=== PATIENT | female | born 1960 | race Caucasian/White ===

== ENCOUNTER → 2021-10-12 11:55 | Outpatient (CLI) | payer BC, SELFPAY ==
--- NOTE | ~2021-10-12 | MR_ITS ---
EXAMINATION: MR brain/brain stem wo/w con EXAM DATE: 10/12/2021 12:50 INDICATION: Double vision since October 02. TECHNIQUE: Magnetic resonance imaging (MRI) of the brain/brain stem obtained without contrast. Sagit jeff T1, axial diffusion, gradient echo (T2*), T1, T2, FLAIR sequences obtained. Patient was then inj ected with 10 cc intravenous Multihance contrast. Axial and coronal postcontrast T1 weighted sequence s obtained. There is no prior study for comparison. FINDINGS: There are no areas of restricted diffusion to suggest acute infarction. There is no acute hemorrhage seen on the T2*, a hemosiderin sensitive sequence. No intraparenchymal brain mass lesion. There is mild periventricular and subcortical T2/FLAIR signal hyperintensity, nonspecific but probab ly related to small vessel ischemic disease (microangiopathy). There are no extra-axial collectio ns. Flow voids are seen in the cerebral arteries on the T2-weighted sequences consistent with their expected patency. The orbits are unremarkable. Soft tissue is unremarkable. There are no areas of abnormal enhancement on the postcontrast images. IMPRESSION: 1. No acute intracranial findings. 2. Mild microangiopathy. Reviewed, dictated and finalized at location G. TEACHER
[2021-10-12 12:27] LABS: Estimated Glomerular Filt Rate > 60
== END ==
PROVIDERS: Visit Provider Internal Medicine
DX: H53.2 Diplopia (principal); R93.0 Abnormal findings on diagnostic imaging of skull and head, not elsewhere classified
CPT/HCPCS: 70553; A9577

== ENCOUNTER → 2022-01-26 11:46 | Outpatient (CLI) | payer BC, SELFPAY ==
--- NOTE | ~2022-01-26 | MR_ITS ---
EXAMINATION: MR shoulder LT wo con DATE: 01/26/2022 12:58 INDICATION: Left shoulder pain. TECHNIQUE: Magnetic resonance imaging (MRI) of the left shoulder was performed without intravenous co ntrast. Sequences included axial PD-weighted FS FSE, coronal oblique PD-weighted FS FSE and T2-weight ed FS FSE, and sagittal oblique T2-weighted FS FSE and T1-weighted FSE. COMPARISON: None. FINDINGS: Coracoacromial arch: The acromion undersurface is curved in morphology (type II). There is remodeling of the undersurface of the acromion, consistent with cuff arthropathy. There is moderate acromioclavicular joint osteoart hritis. There is moderate subacromial/subdeltoid bursitis. Rotator cuff: There is a full-thickness tear of supraspinatus and infraspinatus tendons measuring 4.5 cm anterior t o posterior by 5.0 cm proximal to distal. There is a partial tear of teres minor tendon. There is an articular-sided partial-thickness tear of subscapularis tendon. There is volume loss of supraspinatus and infraspinatus muscle bellies. There is severe fatty atrophy of infraspinatus muscle belly, moder ate fatty atrophy of supraspinatus muscle belly, and mild fatty atrophy of subscapularis muscle belly . There is a partial tear of deltoid muscle laterally at the myotendinous junction. Biceps tendon and glenoid labrum: There is a complete tear of biceps tendon with scarred tendon in the bicipital groove. There is degen erative tearing of the glenoid labrum. Fluid: There is a large glenohumeral joint effusion. Bones/cartilage: There is superior subluxation of humeral head with respect to glenoid. There is shallow partial-thick ness cartilage loss of humeral head and glenoid. IMPRESSION: 1. Massive full-thickness rotator cuff tear. 2. Partial tear of deltoid muscle laterally (grade 2 strain). 3. Mild glenohumeral joint chondrosis. 4. Complete tear of proximal biceps tendon. 5. Large glenohumeral joint effusion and moderate subacromial/subdeltoid bursitis. Reviewed, dictated and finalized at location A. IMPRESSION: 1. Massive full-thickness rotator cuff tear. 2. Partial tear of deltoid muscle laterally (grade 2 strain). 3. Mild glenohumeral joint chondrosis. 4. Complete tear of proximal biceps tendon. 5. Large glenohumeral joint effusion and moderate subacromial/subdeltoid bursit is.
== END ==
PROVIDERS: PCP Internal Medicine; Visit Provider Physician Assistant Medical
DX: M75.102 Unspecified rotator cuff tear or rupture of left shoulder, not specified as traumatic (principal); S46.212A Strain of muscle, fascia and tendon of other parts of biceps, left arm, initial encounter; X58.XXXA Exposure to other specified factors, initial encounter; M25.412 Effusion, left shoulder
CPT/HCPCS: 73221

== ENCOUNTER → 2023-04-04 13:09 | Outpatient (CLI) | payer BC, SELFPAY ==
--- NOTE | ~2023-04-04 | MM_ITS ---
EXAMINATION: MM screening elver BI w vera HISTORY: Screening TECHNIQUE: Craniocaudal and mediolateral oblique 3-D tomosynthesis images were obtained and synthetic 2-D images were generated. CAD analysis was submitted and interpreted. COMPARISON: No prior mammogram is available for comparison at this institution. BREAST PARENCHYMAL COMPOSITION: There are scattered areas of fibroglandular density. FINDINGS: There is no evidence of suspicious mass, calcification, or architectural distortion to sugg est malignancy in either breast. There has been no suspicious interval change. IMPRESSION: 1. No mammographic evidence of malignancy. 2. Recommend routine screening mammography in one year. BI-RADS Category 1: Negative Reviewed, dictated and finalized at location A.
== END ==
PROVIDERS: PCP Obstetrics & Gynecology Gynecology; Visit Provider Obstetrics & Gynecology Gynecology
DX: Z12.31 Encounter for screening mammogram for malignant neoplasm of breast (principal)
CPT/HCPCS: 77063; 77067

== ENCOUNTER 2024-05-17 09:46 | Outpatient (CLI) | payer BC, SELFPAY ==
--- NOTE | ~2024-05-17 | MM_ITS ---
EXAMINATION: MM screening elver BI w vera HISTORY: Screening TECHNIQUE: Craniocaudal and mediolateral oblique 3-D tomosynthesis images were obtained and synthetic 2-D images were generated. CAD analysis was submitted and interpreted. COMPARISON: 04/04/2023 BREAST PARENCHYMAL COMPOSITION: Dense: The breasts are heterogeneously dense, which may obscure small masses FINDINGS: There is no evidence of suspicious mass, calcification, or architectural distortion to sugg est malignancy in either breast. There has been no suspicious interval change. IMPRESSION: 1. No mammographic evidence of malignancy. 2. Recommend routine screening mammography in one year. BI-RADS Category 1: Negative Reviewed, dictated and finalized at location B.
== END 2024-05-17 09:47 | disposition home or self-care (01) ==
PROVIDERS: PCP Obstetrics & Gynecology Gynecology; Visit Provider Obstetrics & Gynecology Gynecology
DX: Z12.31 Encounter for screening mammogram for malignant neoplasm of breast (principal)
CPT/HCPCS: 77063; 77067

== ENCOUNTER 2024-12-30 10:57 | Outpatient (CLI) | payer BC, SELFPAY ==
--- NOTE | ~2024-12-30 | DEXA_ITS ---
Bone Density Report Name: MAUDE HUTCHINS Age: 64 Sex: Female Ethnicity: White Date of : 1960 Indication: postmenopausal; screening for osteoporosis; height loss; Referring Provider: NORBERT LABOY Study: Bone densitometry was performed. Exam Date: December 30, 2024 Accession number: [id number] Bone Density: Region BMD T-score Z-score Classification AP Spine(L1-L4) 1.262 2.0 3.7 Normal Femoral Neck (Left) 0.819 -0.3 1.2 Normal Total Hip (Left) 0.872 -0.6 0.6 Normal Femoral Neck (Right) 0.830 -0.2 1.3 Normal Total Hip (Right) 0.857 -0.7 0.5 Normal Total Hip Mean 0.864 -0.7 0.6 Normal World Health Organization criteria for BMD impression classify patients as: Normal (T-score at or above -1.0), Osteopenia (T-score between -1.0 and -2.5), or Osteoporosis (T-score at or below -2.5). 10-year Fracture Risk: FRAX not reported because: All T-scores for Spine Total, Hip Total, Femoral Neck at or above -1.0 Clinical Information Provided by Patient: Has used the following medications: Vitamin D, Calcium Patient maximum height was 67 Menopause Age: 50 Drinks caffeinated beverages Onset of menses at age 14 Number of children 2 Impression: The patient has normal bone mass. Discussion: BONE DENSITY IS ABOVE THE MINIMUM DESIRABLE LEVEL AT ALL SKELETAL SITES TESTED. This patient?s bone mineral density is above the minimum desirable level (T-score -1.0 or better) at all sites measured. The patient should follow a healthful lifestyle (good nutrition with adequate calcium and vitamin D, and appropriate weight-bearing exercise). Follow-Up: Consider repeating this study in 5 years or sooner if there is some new clinical indication. Reported by: BREEZY on 12/30/2024 11:47:00 AM. Reviewed, dictated and finalized at location A.
--- OUTSIDE RECORDS SUMMARY | 2024-12-30 11:21 | XMS_ITS ---
Author Organization [facility] Address [address] [facility] [address] [place] [address] Care Team Providers Care Heel Nailing Machine Operator Name Role Phone Pro Ugarte Unavailable [phone] ALLERGIES No Known Allergies REASON FOR VISIT Left shoulder MEDICATIONS Medication SIG (Take, Route, Fr equency, Duration) Notes Start Date End Date Status Magnesium Unknown Calcium Unknown Daily Vitamins Unkno wn VITAL SIGNS BMI 22.30 kg/m2 10/29/2024 Height 65 in 10/29/2024 Weight 134 lbs 10/29/2024 Encounters Encounter Location Date Provider Diagnosis [facility] [place] [address] [facility] [address] [address] 10/29/2024 Pro Ugarte Rotator cuff arthropathy of left shoulder M12.812 and Left shoulder pain M25.512 ASSESSMENTS Encounter Date Diagnosis Assessment Notes Treatment Notes Treatment Clinical Notes 10/29/2024 Rotator cuff arthropathy of left shoulder (ICD-10 - M12.812) Sherri Monroy is a 63 y.o. F who presents with chronic left shoulder pain secondary to rotator cuff arthropathy. She is notably weak on exam. She had a good response from the last injection and is hoping for another one today as she works a physical job. She is quite fearful of needing a replacement. We did talk to her about the details of a reverse shoulder arthroplasty if she were to need one. At this point her range of motion is quite good and the main reason to do the replacement would be to alleviate her pain and make her strength a little bit better. However, if she continues to have good responses to the injections I would recommend continuing these. We will see her back in 3 months for follow-up for another potential injection at that time. If he is not getting lasting relief we may have to discuss a reverse replacement. 10/29/2024 Left shoulder pain (ICD-10 - M25.512) PLAN OF TREATMENT Pending Test Test Name Order Date X ray : Shoulder 4 views L, AP, Grashey, Outlet, Axillary 10/29/2024 Next Appt Details Follow Up: 3 Months, Reason: Provider Name:Pro Ugarte, 01/30/2025 09:50:00 AM, [address] , [place] [address], [place], [address], Procedure Notes * Category Sub-Category Detail Notes Subacromial Bursa Injection Side Left Details The injection was do ne with the patient in a seated position. The skin was prepped with betadine and alcohol. A 22-gauge, 1 1/2-inch needle was inserted into the subacromial bursa using a posterior approach. I then injected a solution containing 1 cc of Celestone and 5 cc of 1% lidocaine without epinephrine. The needle was removed and a sterile dressing was applied. There were no complications.
--- OUTSIDE RECORDS SUMMARY | 2024-12-30 11:22 | XMS_ITS | Clinical Summary ---
Author Organization [facility] [address] [place] [address] Care Team Providers Care Cook House Laborer Name Role Phone Lynda Sparks Primary Care Provider Allergies No known active allergies Medications mesalamine (LIALDA) 1.2 gram EC tablet take 2 tablet by oral route every day with a meal 0 0 02/14/2016 Active omega-3 fatty acids (FISH OIL) 300 mg capsule 300 mg. 0 0 02/14/2016 Active Active Problems Problem Noted Date Diagnosed Date Screening for colon cancer 04/06/2023 Surgical History Surgery Date Site/Laterality Comments SECTION 1986 section HERNIA REPAIR 1977 Hernia repair TONSILLECTOMY tonsillectomy COLONOSCOPY 03/31/2011 Medical History Medical History Date Comments Ulcerative colitis (HCC) Ulcerat todd colitis Family History Medical History Relation Name Comments Colon cancer Brother 1 Brain cancer Brother 2 Cancer -brain t umor; Cause of : Cancer -brain tumor Rectal cancer Father Brain cancer Mother cancer, brain; Cancer Mother Cancer -unknown ; Cause of : Cancer -unknown Relation Name Status Comments Brother 1 Alive Brother 2 Father Mother (Age 59) Social History Tobacco Use Types Packs/Day Years Used Date Smoking Tobacco: Never Tobacco Cessation:Counseling Given: Not Answered Alcohol Use Standard Drinks/Week Comments No 0 (1 standard drink = 0.6 oz pur e alcohol) AUDIT-C Answer Date Recorded Q1: How often do you have a drink containing alcohol? 4 or more times a week 04/19/2023 Q2: How many drinks containi ng alcohol do you have on a typical day when you are drinking? 1 or 2 Q3: How often do you have si x or more drinks on one occasion? 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 Gender Identity Not on file Sexual Orientation Not on file Obstetrics History Para Term AB IAB SAB Ectopic Multiple Livin g Live Births 14 2 2 Date Outcome GA Total Labor Labor//3rd Weight Sex Type Anes PTL Lashaun A1 A5 Name Clin Term Term Last Filed Vital Signs Vital Sign Reading Time Taken Comments Blood Pressure 143/70 04/20/2023 12:40 PM CDT Pulse 58 04/20/2023 12:40 PM CDT Temperature 36 C (96.8 F) 04/20/2023 12:40 PM CDT Respiratory Rate 15 04/20/2023 12:40 PM CDT Oxygen Saturation 99% 04/20/2023 12:40 PM CDT Inhaled Oxygen Concentration - - Weight 59.9 kg (132 lb) 04/20/2023 10:19 AM CDT Height 170.2 cm (5' 7 ) 04/20/2023 10:19 AM CDT Body Mass Index 20.67 04/20/2023 10:19 AM CDT Plan of Treatment Health Maintenance Due Date Last Done Comments Cervical Cancer Screening 1960 Depression Screening 1960 Hepatitis C Screening 1960 DTaP/Tdap/Td Vaccine (1 - Tdap) 11/26/1971 Hepatitis B Screening 1978 Regular Well Visit/Exam 18-64 1978 Zoster Vaccine (1 of 2) 2010 Breast Cancer Screening-Mammogram 05/11/2022 05/11/2021, 04/14/2020, 03/10/2019, Additional history exists Influenza Vaccine (Season Ended) 2025 Colon Cancer Screening-Colonoscopy 04/20/2033 04/20/2023, 03/31/2011 Colon Cancer Screening-CT Colonography Discontinued 04/20/2023, 03/31/2011 Colon Cancer Screening-DNA Stool Discontinued 04/20/2023, 03/31/2011 Colon Cancer Screening-FIT Discontinued 04/20/2023, Colon Cancer Screening-Sigmoidoscopy Discontinued 04/20/2023, 03/31/2011 Pneumococcal vaccine <65 Aged Out No longer eligible based on patient's age to complete this topic Procedures Procedure Name Priority Date/Time Associated Diagnosis Comments COLONOSCOPY 04/20/2023 10:17 AM CDT SCREENING MAMMOGRAM BILATERAL W HAO Schedule Routine, Read Routine (OP Routine) 05/11/2021 11:36 AM CDT Encounter for screening mammogram for malignant neoplasm of breast from Last 3 Months or Most Recently Relevant to Health Maintenance Results * COLONOSCOPY (04/20/2023 10:17 AM CDT) Anatomical Region Laterality Modality Other Narrative Procedure Note Kurt Quispe MD - 04/20/2023 10:17 AM CDT [facility] Patient Name: Sherri Monroy Procedure Date: 04/20/2023 10:17 AM Date of : 1960 Admit Type: Outpatient Age: 62 Gender: Female Attending MD: Kurt Quispe M.D. Room: [facility] ENDOSCOPY ROOM 2 Note Status: Finalized Patient Profile: Refer to note in patient chart for documentation of history and physical. Procedure: Colonoscopy Indications: Screening for colorectal malignant neoplasm, Last colonoscopy: March 2011 Referring MD: Haja Mcnamara MD Providers: Kurt Quispe M.D. Impression: - Hemorrhoids found on perianal exam. - Diverticulosis in the sigmoid colon. - The examination was otherwise normal. - No specimens collected. Recommendation: - Discharge patient to home. - Resume previous diet. - Continue present medications. - Repeat colonoscopy in 10 years for screening purposes. - Return to primary care physician as previously scheduled. Medicines: Propofol per Anesthesia Complications: No immediate complications. Estimated Blood Loss: Estimated blood loss: none. Procedure: Pre-Anesthesia Assessment: - This assessment was completed [Time ofAssessment] prior to the administration of sedation. The benefits, risks and alternatives of theprocedure and sedation were discussed and informed consentwas obtained. All questions were answered. Please referto the signed informed consent document in the medical record. The bowel preparation used was Miralax and bisacodyl tablets via split dose instruction. The scope was passed under direct vision. The Pediatric Colonoscope [id number]-H190L [id number] was introducedthrough the anus and advanced to the the cecum, identifiedby appendiceal orifice and ileocecal valve. The colonoscopy was performed without difficulty. The patient tolerated the procedure well. The qualityof the bowel preparation was excellent. The ileocecal valve, appendiceal orifice, and rectum were photographed. Findings: Hemorrhoids were found on perianal exam. A few small-mouthed diverticula were found in the sigmoid colon. The exam was otherwise without abnormality. Electronically signed by Kurt Quispe M.D. Kurt Quispe M.D. 04/20/2023 12:10:54 PM Number of Addenda: 0 Note Initiated On: 04/20/2023 10:17 AM Procedure Code(s): --- Professional --- G0121, Colorectal cancer screening; colonoscopy on individual not meeting criteria for high risk --- Technical --- G0121, Colorectal cancer screening; colonoscopy on individual not meeting criteria for high risk Diagnosis Code(s): --- Professional --- K57.30, Diverticulosis of large intestine without perforation orabscess without bleeding K64.9, Unspecified hemorrhoids Z12.11, Encounter for screening for malignant neoplasm of colon --- Technical --- K57.30, Diverticulosis of large intestine without perforation orabscess without bleeding K64.9, Unspecified hemorrhoids Z12.11, Encounter for screening for malignant neoplasm of colon CPT copyright 2020 [employer]. All rights reserved. The codes documented in this report are preliminary and upon remote coders reviewmay be revised to meet current compliance requirements. Recognized by the [employer] for promoting quality in endoscopy us Kurt Quispe MD ENDOSCOPY PROCEDURES Final Re sult * Screening Mammogram Bilateral W Hao (05/11/2021 11:36 AM CDT) Anatomical Region Laterality Modality Breast Bilateral Mammography Impressions 05/11/2021 12:29 PM CDT BI-RADS ATLAS category (overall): 1 Negative There is no mammographic evidence of malignancy. A 1 year screening mammogram is recommended. The patient has been or will be contacted. We recommend annual screening mammography for women at average risk of breast cancer beginning at age 40, based on guidelines of the [employer] (ACR Practice Parameter for the Performance of Screening and Diagnostic Mammography) and [employer]. For women with and elevated risk of breast cancer, please refer to the ACR Practice Parameter for specific screening recommendations. The patient will be entered into a reminder system with a target due date of 1 year for her next screening exam. Narrative 05/11/2021 12:29 PM CDT Screening Mammogram Bilateral W Hao: 05/11/21 The study was acquired using full field digital technology and interpreted from soft copy. 2D digital mammographic views, as well as 3D digital tomosynthesis were performed in the CC and MLO projections. CLINICAL: Encounter for screening mammogram for malignant neoplasm of breast No relevant medical history has been documented for this patient. No known family history of breast cancer. COMPARISONS: 04/14/2020 Screening Mammogram Bilateral W Hao 03/10/2019 Screening Mammogram Bilateral W Hao BREAST TISSUE: The breasts have scattered areas of fibroglandular density. FINDINGS: No suspicious masses, suspicious calcifications, or other suspicious findings are seen within either breast. There has been no suspicious change. Zuleima Pemberton MD IMG MAMMO PROCEDURES Final R esult from Last 3 Months or Most Recently Relevant to Health Maintenance Insurance CHOICE PRF PPO [place] CHO[place] Advance Directives For more information, please contact: [phone] * Full Code (Latest Code Status on File) Date Activated Date Inactivated Comments 04/20/2023 10:14 AM 04/20/2023 4:48 PM * Full Code Date Activated Date Inactivated Comments 04/20/2023 10:14 AM 04/20/2023 10:14 AM Care Teams Cook House Laborer Relationship Specialty Start Date End Date Lynda Sparks PA [address] [place] [id number] PCP - General Family Practice 04/20/23
--- OUTSIDE RECORDS SUMMARY | 2024-12-30 11:22 | XMS_ITS ---
Author Organization [facility], Address [address] [address] Care Team Providers Care Residential Appliance Repair Technician Name Role Phone Pro Ugarte Unavailable [phone] REASON FOR VISIT Left shoulder Encounters Encounter Location Date Provider Diagnosis . [facility] [place] [address] [address] 10/24/2024 Pro Ugarte PLAN OF TREATMENT Next Appt Details Provider Name:Pro Ugarte, 01/30/2025 09:50:00 AM, [address], [address], [place], [address],
--- OUTSIDE RECORDS SUMMARY | 2024-12-30 11:22 | XMS_ITS | Clinical Summary ---
Author Organization [facility] Address [address] [place] [address] Care Team Providers Care Corn Shucker Name Role Phone None, Physician Primary Care Provider Unavailabl e Source Comments [facility],non-owned Affiliates and Associated Physician Practices is amultiple site organization consisting of ambulatory clinics and hospital sitesin [place], [place], [place] and [place]. This disclosure is being madepursuant to the Care Everywhere program and may not contain all information available regarding this patient. Last updated [email or web address] [facility] Allergies No known active allergies Medications * Be aware that medications may not be up to date on this document. Alwaysverify current medications with the patient. Multiple Vitamin (MULTI VITAMIN DAILY PO) Active MAGNESIUM CITRATE PO Active calcium 500 mg tablet Take 1 (one) tablet by mouth 2 times daily with morning and evening meal Active Family History Medical History Relation Name Comments Brain Tumor Brother CAD (Coronary Artery Disease) Maternal Grandmother Cancer - Other Mother CAD (Coronary Artery Disease) Paternal Grandmother Relation Name Status Comments Brother Father Maternal Grandmother Mother Paternal Grandmother Social History Tobacco Use Types Packs/Day Years Used Date Smoking Tobacco: Never Smokeless Tobacco: Never Alcohol Use Standard Drinks/Week Comments Yes 0 (1 standard drink = 0.6 oz pur e alcohol) occasionally PHQ-2 Answer Date Recorded Patient Health Questionnaire-2 Score 0 03/29/2024 Comments No Sex and Gender Information Value Date Recorded Sex Assigned at Not on file Legal Sex Female 3:50 PM CDT Gender Identity Not on file Sexual Orientation Not on file Last Filed Vital Signs Vital Sign Reading Time Taken Comments Blood Pressure 128/80 03/29/2024 8:51 AM CDT Pulse 60 03/29/2024 8:51 AM CDT Temperature 36.1 C (97 F) 03/29/2024 8:51 AM CDT Respiratory Rate - - Oxygen Saturation 97% 03/29/2024 8:51 AM CDT Inhaled Oxygen Concentration - - Weight 63 kg (139 lb) 03/29/2024 8:51 AM CDT Height - - Body Mass Index - - Plan of Treatment Health Maintenance Due Date Last Done Comments COLOGUARD (AGES 45-75) - COLON CA SCREENING [address] COLONOGRAPHY - COLON CA SCREENING 1960 FIT - COLON CA SCREENING 1960 FLEX SIG - COLON CA SCREENING 1960 LIPID TESTING 1960 PAP SMEAR 1960 HIV SCREENING 11/26/1975 HEPATITIS C SCREENING 11/21/1978 DTAP/TDAP/TD VACCINES (1 - Tdap) 11/26/1979 PNEUMOCOCCAL VACCINE 50+ (1 of 1 - PCV) 2010 ZOSTER VACCINE (1 of 2) 2010 MAMMOGRAM 05/11/2023 05/11/2021, 04/21, 05/11/2021, Additional history exists COVID-19 VACCINE ( - season) 2024 DEPRESSION SCREENING 08/20/2024 03/29/2024 INFLUENZA VACCINE (Season Ended) 2025 COLONOSCOPY - COLON CA SCREENING 04/20/2033 04/20/2023 Colorectal Cancer Screening 04/20/2033 Respiratory Syncytial Virus (RSV) Vaccine Pt: or over 60 yrs (1 - 1-dose 75+ series) 11/26/2035 HEPATITIS B VACCINE Aged Out No longe r eligible based on patient's age to complete this topic HIB VACCINE Aged Out No longer eligi ble based on patient's age to complete this topic HPV VACCINE Aged Out No longer eligi ble based on patient's age to complete this topic MENINGOCOCCAL (Group B) VACCINE SHARED DECISION-MAKING Aged Out No longer eligible based on patient's age to complete this topic MENINGOCOCCAL GROUPS A/C/Y/W VACCINE Aged Out No longer eligible based on patient's age to complete this topic Insurance [facility] Care Teams Corn Shucker Relationship Specialty Start Date End Date None, Physician [address] [place] [address] PCP - General 05/30/23
--- OUTSIDE RECORDS SUMMARY | 2024-12-30 11:22 | XMS_ITS | Clinical Summary ---
Author Organization [facility] Address [address] [place] [address] Care Team Providers Care Wire Frame Lampshade Maker Name Role Phone None, Provider MD Primary Care Provider Unavaila ble Allergies No known active allergies Medications calcium carbonate (OS-ZACHARY) 1250 (500 Ca) MG tablet Take 500 mg by mouth daily. Active Multiple Vitamin (MULTIVITAMIN ADULT OR) Take 1 tablet by mouth daily. Active Magnesium 30 MG Tab Take 1 tablet by mouth daily. Active HYDROcodone-acet aminophen (NORCO) 5-325 MG tabletIndication s:Acute Pain < 7 Day Supply Take 1 tablet by mouth every 6 (six) hours as needed for Pain. Indications : Acute Pain < 7 Day Supply 20 tablet 04/08/2024 Active ibuprofen (MOTRIN) 800 MG tablet Take 1 tablet (800 mg total) by mouth every 8 (eight) hours as needed for Pain. 30 tablet 04/08/2024 Active Active Problems No known active problems Immunizations Immunization Administration Dates Next Due Tdap (Boostrix) 03/22/2024 Family History Medical History Relation Comments Suicide Attempts Father Cancer Mother Relation Status Comments Father Mother Social History Tobacco Use Types Packs/Day Years Used Date Smoking Tobacco: Never Smokeless Tobacco: Never Tobacco Cessation:Counseling Given: Not Answered Alcohol Use Standard Drinks/Week Comments Yes 0 (1 standard drink = 0.6 oz pur e alcohol) Social Comments No Sex and Gender Information Value Date Recorded Sex Assigned at Not on file Legal Sex Female 7:03 PM CDT Gender Identity Not on file Sexual Orientation Not on file Last Filed Vital Signs Vital Sign Reading Time Taken Comments Blood Pressure 139/81 04/08/2024 9:30 AM CDT Pulse 56 04/08/2024 9:30 AM CDT Temperature 36.2 C (97.1 F) 04/08/2024 9:30 AM CDT Respiratory Rate 16 04/08/2024 9:30 AM CDT Oxygen Saturation 98% 04/08/2024 9:30 AM CDT Inhaled Oxygen Concentration - - Weight 63.9 kg (140 lb 14 oz) 04/08/2024 6:30 AM CDT Height 165.1 cm (5' 5 ) 04/08/2024 6:30 AM CDT Body Mass Index 23.44 04/08/2024 6:30 AM CDT Plan of Treatment Health Maintenance Due Date Last Done Comments Cervical Cancer Screening Pap Smear (Age 30 to 64) Every 3 Years 1960 Colorectal Cancer Screening Colonoscopy (10 Years) 1960 Annual Physical 11/26/1963 Hepatitis C 1978 Cervical Cancer Screening Pap with HPV Testing (Age 30 to 64) Every 5 Years 1990 Cervical Cancer Screening with HPV 1990 Pneumococcal Vaccine: 50+ Years (1 of 1 - PCV) 2010 Zoster Vaccines (1 of 2) 2010 Mammogram Screening 05/11/2023 05/11/2021, 04/14/2020, 03/10/2019, Additional history exists COVID-19 Vaccine (1 - season) 2024 DTaP, Tdap and Td Vaccines (2 - Td or Tdap) 03/22/2034 03/22/2024 RSV Immunization or 60+ Years (1 - 1-dose 75+ series) 11/26/2035 Meningococcal B Vaccine Aged Out No l onger eligible based on patient's age to complete this topic Meningococcal Vaccine Aged Out No valerie amado eligible based on patient's age to complete this topic RSV Immunizations Under 20 Months Aged Out No longer eligible based on patient's age to complete this topic Insurance [facility] Advance Directives * Full Code (Latest Code Status on File) Date Activated Date Inactivated Comments 04/08/2024 9:13 AM 04/08/2024 11:54 AM Care Teams Wire Frame Lampshade Maker Relationship Specialty Start Date End Date None, Provider, PCP - General UNKNOWN PHYSICIAN SPECIALTY 03/22/24
--- OUTSIDE RECORDS SUMMARY | 2024-12-30 11:22 | XMS_ITS | Patient Health Record ---
Author Organization [facility] Address [address] [address] Care Team Providers Care Development Mechanic Name Role Phone Shanel Pro Unavailable [phone] ALLERGIES No Known Allergies REASON FOR REFERRAL No Information MEDICATIONS Medication SIG (Take, Route, Fr equency, Duration) Notes Start Date End Date Status Magnesium Unknown Calcium Unknown Daily Vitamins Unkno wn SOCIAL HISTORY Sex Assigned At : Social History Observation Description Sex Assigned At Unknown PROBLEMS Problem Type ICD Code Onset Dates Problem Status W/U Status Risk SNOMED Code Notes Problem Rotator cuff arthropathy of left shoulder (M12.812) Active confirmed Problem Rotator cuff arthropathy of right shoulder (M12.811) Active confirmed Rotator cuff arthropathy of right shoulder (20885452735392 106) VITAL SIGNS Height 65 in 10/29/2024 Weight 134 lbs 10/29/2024 BMI 22.30 kg/m2 10/29/2024 Encounters Encounter Location Date Provider Diagnosis [facility] [place] [address] [address] 10/24/2024 Pro Ugarte [facility] [place] [address] [address] 10/29/2024 Pro Ugarte Rotator cuff arthropathy of [...] Grashey, Outlet, Axillary 10/29/2024 Next Appt Details Provider Name:Pro Ugarte, 01/30/2025 09:50:00 AM, [address] , [facility] [address], [place], [address], Insurance Providers Payer Name Payer Address Payer Phone Subscriber Number Group Number Insured Name Patient Relationship to Insured Coverage Start Date Coverage End Date Jeaneth Oakley [address] [place] [address] [id number] Sherri Diaz Self - patient is the insured MEDICAL (GENERAL) HISTORY Surgical History Surgery Date(Month/Year)
--- OUTSIDE RECORDS SUMMARY | 2024-12-30 11:22 | XMS_ITS ---
Author Organization [facility] Address [address] [facility] [address] [place] [address] Care Team Providers Care Golf Professional Name Role Phone Pro Ugarte Unavailable [phone] Riley Hargrove Unavailable [phone] ALLERGIES No Known Allergies RESULTS Component Value Reference Range Notes X ray : Shoulder 4 views R, AP, Grashey, Outlet, Axillary Reviewed date:07/25/2023 11:29:42 AM Interpretation:[id number] Performing Lab: Notes/Report: 1058 REASON FOR VISIT Right shoulder MEDICATIONS Medication SIG (Take, Route, Fr equency, Duration) Notes Start Date End Date Status Magnesium Active Calcium Active Daily Vitamins Activ e PROBLEMS Problem Type ICD Code Onset Dates Problem Status W/U Status Risk SNOMED Code Notes Problem Rotator cuff arthropathy of right shoulder (M12.811) Active confirmed Rotator cuff arthropathy of right shoulder (55078181615031 106) VITAL SIGNS BMI 22.30 kg/m2 07/25/2023 Height 65 in 07/25/2023 Weight 134 lbs 07/25/2023 Encounters Encounter Location Date Provider Diagnosis [facility] [address] [facility] [address] [place] [address] 07/25/2023 Riley Hargrove Right shoulder pain M25.511 and Rotator cuff arthropathy of right shoulder M12.811 ASSESSMENTS Encounter Date Diagnosis Assessment Notes Treatment Notes Treatment Clinical Notes 07/25/2023 Right shoulder pain (ICD-10 - M25.511) 07/25/2023 Rotator cuff arthropathy of right shoulder (ICD-10 - M12.811) PLAN OF TREATMENT Next Appt Details Follow Up: prn, Reason: Provider Name:Pro Ugarte, 01/30/2025 09:50:00 AM, [address], [facility] [address], [place], [address], Progress Notes * Examination Category Sub-Category Detail Notes General Examination MUSCULOSKELETAL: Right upper extremity: No tenderness surrounding the shoulder. 160 degrees of forward flexion of the shoulder, 80 degrees of abduction external rotation and internal rotation to the low lumbar spine. There is significant weakness on supraspinatus and infraspinatus testing. Negative drop-arm sign. Negative external rotation lag testing. No instability. Able make full composite fist. Sensation intact light touch distally. Fingers are pink, warm and well perfused brisk cap refill. Radial pulse +2.
--- OUTSIDE RECORDS SUMMARY | 2024-12-30 11:22 | XMS_ITS | Referral Summary ---
Author Organization [facility] Address [address] [place] [address] Care Team Providers Care Recycle Worker Name Role Phone Lynda Sparks Primary Care Provider [phone] Allergies No known active allergies Medications mesalamine (LIALDA) 1.2 gram EC tablet take 2 tablet by oral route every day with a meal 0 0 02/14/2016 Active omega-3 fatty acids (FISH OIL) 300 mg capsule 300 mg. 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 Room: [facility] ROOM 2 Note Status: Finalized Patient [...] under direct vision. The Pediatric Colonoscope [id number]-H190L [id number] was introducedthrough the anus and advanced to [...] malignant neoplasm of colon CPT copyright 2020 [employer]. All rights reserved. The codes documented in this report are preliminary and upon care professional reviewmay be revised to meet current compliance requirements. Recognized by the [employer] for promoting quality [...] age 40, based on guidelines of the [employer] (ACR Practice Parameter for the Performance of Screening and Diagnostic Mammography) and [employer]. For women [...] breast. There has been no suspicious change. us Zuleima Pemberton MD IMG MAMMO PROCEDURES Final R esult from Last 3 Months or Most Recently Relevant to Health Maintenance Insurance [place] Advance Directives For more information, please contact: [phone] * Full Code (Latest Code Status on File) Date Activated Date Inactivated Comments 04/20/2023 10:14 AM 04/20/2023 4:48 PM * Full Code Date Activated Date Inactivated Comments 04/20/2023 10:14 AM 04/20/2023 10:14 AM Care Teams Recycle Worker Relationship Specialty Start Date End Date Lynda Sparks PA [address] [place] [address] PCP - General Family Practice 04/20/23
== END 2024-12-30 10:58 | disposition home or self-care (01) ==
PROVIDERS: PCP Physician Assistant Medical; Visit Provider Obstetrics & Gynecology Gynecology
DX: Z13.820 Encounter for screening for osteoporosis (principal); Z78.0 Asymptomatic menopausal state
CPT/HCPCS: 77080